=== PATIENT | female | born 1940 | race Hispanic/Latino ===

== ENCOUNTER → 2022-11-01 | Outpatient (CLI) | payer OTHER | END | disposition home or self-care (01) | LOC: RAH 11:09 | PROVIDERS: ATTEND Internal Medicine | DX: M51.9 Unspecified thoracic, thoracolumbar and lumbosacral intervertebral disc disorder (principal); M51.35 Other intervertebral disc degeneration, thoracolumbar region; Z13.820 Encounter for screening for osteoporosis; M41.9 Scoliosis, unspecified | CPT/HCPCS: 72082; 72100 ==